=== PATIENT | male | born 1995 | race Hispanic/Latino ===

== ENCOUNTER 2024-04-22 15:03 | Emergency (ER) | payer SELFPAY ==
[2024-04-22 16:07] LABS: #Basophils 0.04 10x3/uL (0.0-0.2); %Basophils 0.5 % (0.0-1.0); %Eosinophils 1.8 % (0.0-10.0); %Lymphocytes 16.2 % (21.0-51.0); %Monocytes 5.1 % (0.0-10.0); %Neutrophils 76.2 % (42.0-75.0); Hematocrit 41.1 % (42.0-52.0); Hemoglobin 13.7 g/dL (14.0-18.0); Mean Corpuscular HGB CONC 33.3 g/dL (32.0-36.0); Mean Corpuscular Hemoglobin 29.3 pg (27.0-31.0); Mean Platelet Volume 8.2 fL (7.4-10.4); Platelet Count 309 10x3/uL (130-400); RBC Distribution Width 12.6 % (11.5-14.5); Red Blood Cell (RBC) Count 4.67 mill/uL (4.70-6.10)
[2024-04-22 16:18] LABS: ALT (SGPT) 59 U/L (8-55); AST (SGOT) 26 U/L (5-34); Alkaline Phosphatase 76 U/L (40-110); Anion Gap 17 mmol/L (10-20); BUN (Urea Nitrogen) 10 mg/dL (8.9-20.6); Bilirubin, Total 0.5 mg/dL (0.2-1.2); CRP,High Sensitivity (Inhouse) 5.41 mg/dL (< or = 0.5); Calc. Creatinine Clearance 0 mL/min (70-130); Calcium 9.6 mg/dL (7.8-10.44); Carbon Dioxide 25 mmol/L (22-29); Chloride 102 mmol/L (98-107); Estimated GFR 119; Globulin 3.8 g/dL (2.4-3.5); Glucose 133 mg/dL (70-105); Potassium 3.6 mmol/L (3.5-5.1); Protein, Total 7.8 g/dL (6.0-8.3); Sodium 140 mmol/L (136-145)
[2024-04-22] MEDS ORDERED: Lidocaine 1% w/Epinephrine 1:100K 20 ML VIAL ONE (16:25)
[2024-04-22] MEDS ORDERED: Sodium Chloride 0.9% 100 ML ONE (17:45)
[2024-04-22] MEDS ORDERED: Cefepime 2 GM VIAL ONE (17:45)
[2024-04-22] MEDS ORDERED: Vancomycin (BATCH) 1.5 GM in Premix 1 BAG IVPB SCH (18:00)
[2024-04-22 19:13] LABS: RBC Count-Automated (BF) 7642 /cu.mm; WBC/Nucleated-Auto (BF) 10648 /cu.mm
[2024-04-22 19:14] LABS: BF Color Yellow; Body Fluid Source Synovial Fluid; Clarity Cloudy/Turbid (Clear); Tube # EDTA
[2024-04-22 19:17] LABS: BF Segmented Neutrophils 79 %; Cell Count Non Hematic 1 %; Lymphocytes 20 %
== END 2024-04-22 20:21 | disposition home or self-care (01) ==
LOC: ERS 15:03
DX: L03.115 Cellulitis of right lower limb (principal); M25.461 Effusion, right knee; Z75.8 Other problems related to medical facilities and other health care; Z55.6 Problems related to health literacy
CPT/HCPCS: 20610; 36415; 80053; 85025; 85060; 86141; 87070; 87205; 89051; 89060; 96365; 96366; 96367; J0692; J3370

== ENCOUNTER 2024-04-25 10:11 | Emergency (ER) | payer SELFPAY | END 2024-04-25 11:20 | disposition home or self-care (01) | LOC: ERS 10:11 | DX: M25.461 Effusion, right knee (principal); Z75.8 Other problems related to medical facilities and other health care | CPT/HCPCS: 99283 ==